=== PATIENT | female | born 1990 | race Two or more races ===

== ENCOUNTER 2016-08-18 19:14 | Inpatient (IN) | payer SELFPAY ==
[~2016-08-18] VITALS: Ht 165.1 cm; Wt 93.0 kg
[2016-08-18] MEDS ORDERED: DINOPROSTONE 10 MG SUPP.VAG VG ONE (19:45)
[2016-08-18] MEDS ORDERED: fentaNYL PF VIAL 100 MCG/2 ML VIAL IV PRN (19:45)
[2016-08-18] MEDS ORDERED: TERBUTALINE 1 MG/ML VIAL. SQ PRN (19:45)
[2016-08-18] MEDS ORDERED: OXYTOCIN 30 UNIT/500 ML PREMIX 500 ML IV PRN (19:45)
[2016-08-18] MEDS ORDERED: BUTORPHANOL 2 MG/ML VIAL. IV PRN (19:45)
[2016-08-18] MEDS ORDERED: 0.9 % SODIUM CHLORIDE 10 ML DISP.SYRIN. IV PRN (19:45)
[2016-08-18] MEDS ORDERED: LIDOCAINE 1% PF 30 ML VIAL. INJ PRN (19:45)
[2016-08-18] MEDS ORDERED: IBUPROFEN 600 MG TABLET. PO PRN (19:45)
[2016-08-18] MEDS: IV RINGERS,LACTATED 1000ML 1,000 ML IV SCH (20:01)
[2016-08-18 20:27] LABS: HEMATOCRIT 37.1 % (36.0-47.0); HEMOGLOBIN 12.4 g/dL (12.0-15.5); RED BLOOD COUNT 4.23 x10^6/uL (3.50-5.40); RED CELL DISTRIBUTION WIDTH 14.6 % (11.5-14.5); WHITE BLOOD COUNT 8.3 x10^3/uL (4.0-11.0)
[2016-08-18 20:52] VITALS: BP 120/55
[2016-08-19] MEDS: IV RINGERS,LACTATED 1000ML 1,000 ML IV SCH ×2 (02:31→12:16)
[2016-08-19] MEDS ORDERED: OXYTOCIN 30 UNIT/500 ML PREMIX 500 ML IV PRN ×2 (08:00→16:30)
--- NOTE | 2016-08-19 11:10 | PDOC1 ---
OB - History Hx of Present Care: Good Care Ultrasounds: Normal mid trimester US Obstetrical Complications: None Medical Complications: None Past Family/Social History * Past Medical, Surgical, Family and Obstetric Histories reviewed from chart. Rubella: Immune RPR/VDRL: Negative GBS Status: Negative HBsAG: Negative OB - Chief Complaint & HPI Date of Admission: Date of Admission: August 18, 2016 at 19:14 Chief Complaint/History : 4 Para: 3 EGA: 39 Reason for admission: induction of labor Indication for induction: maternal discomfort Admission Nurse Assessment Rev: Yes Problems: OB - Admission Exam Physical Exam Vitals: VS - Last 72 Hours, by Label Date Time Temp Pulse Resp B/P (MAP) Pulse Ox O2 Delivery O2 Flow Rate FiO2 08/18/16 20:52 98.5 68 20 120/55 (76) Room Air 98.5 HEENT: Normal Heart: Regular Rate Lungs: Clear Abdomen: Gravid Extremities: Clubbing Reflexes: Normal Cervical Dilatation: 2cm Effacement: 75% Station: -3 Membranes: Intact Heart Rate: Normal Accelerations: Accelerations Present Contractions on Admission: None Intensity: Mild Text A: 39wks IUP IOL maternal discomforts P: Admit for IOL cervidil, then pitocin in am. MATEO CASH Jr, MD August 19, 2016 11:10
[2016-08-19] MEDS ORDERED: ROPIVacaine 0.2% IN 0.9%NACL PF 40 MG/20 ML DISP.SYRIN. ONE ×2 (12:00→12:01)
[2016-08-19] MEDS ORDERED: L&D EPIDURAL CASSETTE 100 ML EP ONE (12:01)
[2016-08-19] MEDS ORDERED: ePHEDrine PF IN SALINE 50 MG/5 ML DISP.SYRIN IV PRN (12:15)
[2016-08-19] MEDS ORDERED: ONDANSETRON PF 4 MG/2 ML VIAL. IV PRN (12:15)
[2016-08-19] MEDS ORDERED: ROPIVacaine 0.2% PF 10 ML VIAL. EPI ONE (12:15)
[2016-08-19] MEDS ORDERED: L&D EPIDURAL CASSETTE 100 ML EP PRN (12:15)
[2016-08-19] MEDS ORDERED: NALOXONE 0.4 MG/ML VIAL. IV PRN (12:15)
[2016-08-19] MEDS ORDERED: fentaNYL PF VIAL 100 MCG/2 ML VIAL EPI ONE (12:15)
--- NOTE | 2016-08-19 16:26 | PDOC ---
VAGINAL DELIVERY DATE DATE: 08/19/16 TIME: 16:25 : 4 Para: 4 EGA: 39 VAGINAL DELIVERY: VTX VACCUM ASSISTED: No PLACENTA: Spontaneous 12/11 SEX: Female WEIGHT Weight [3030 gm ] Nuchal Cord: No Amniotic Fluid: Clear PAIN: Epidural EPISIOTOMY: No EXTENSION: No EBL 300 ml COMPLICATIONS none CONDITION pt. stable Signs of Intrauterine Infectio: None Shoulder Dystocia: No Problems: MATEO CASH Jr, MD August 19, 2016 16:26
[2016-08-19] MEDS ORDERED: diphenhydrAMINE HCL 25 MG CAPSULE PO PRN (16:30)
[2016-08-19] MEDS ORDERED: HYDROCORTISONE 1% TOPICAL OINTMENT 30GM TUBE. TP PRN (16:30)
[2016-08-19] MEDS ORDERED: ACETAMINOPHEN 325 MG TABLET. PO PRN (16:30)
[2016-08-19] MEDS ORDERED: PHENYLEPH/MINERAL OIL/PETROLAT RECTAL OINTMENT 28GM TUBE. RC PRN (16:30)
[2016-08-19] MEDS ORDERED: IBUPROFEN 800 MG TABLET. PO PRN (16:30)
[2016-08-19] MEDS ORDERED: SIMETHICONE 80 MG TAB.CHEW PO PRN (16:30)
[2016-08-19] MEDS ORDERED: oxyCODONE/APAP 5/325 1 TAB TABLET PO PRN (16:30)
[2016-08-19] MEDS ORDERED: MAGNESIUM HYDROXIDE 2,400 MG/30 ML ORAL.SUSP. PO PRN (16:30)
[2016-08-19] MEDS ORDERED: MMR per PROTOCOL. MC PRN (16:30)
[2016-08-19] MEDS ORDERED: 0.9 % SODIUM CHLORIDE 10 ML DISP.SYRIN. IV PRN (16:30)
[2016-08-19] MEDS ORDERED: BENZOCAINE 20% TOPICAL AEROSOL SPRAY 57GM CAN. TP PRN (16:30)
[2016-08-19] MEDS ORDERED: DOCUSATE SODIUM 100 MG CAPSULE. PO PRN (16:30)
[2016-08-19] MEDS ORDERED: ZOLPIDEM 5 MG TABLET. PO PRN (16:30)
[2016-08-19] MEDS ORDERED: MAG HYDROX/ALUMINUM HYD/SIMETH 30 ML ORAL.SUSP PO PRN (16:30)
[2016-08-19 19:30] VITALS: BP 108/57
[2016-08-19 22:41] VITALS: BP 107/61
[2016-08-20 02:38] VITALS: BP 108/64
[2016-08-20 04:29] LABS: BASO % 0 % (0-3); EOS % 0 % (0-3); HEMATOCRIT 36.2 % (36.0-47.0); HEMOGLOBIN 12.1 g/dL (12.0-15.5); LYMPH # 1.4 x10^3/uL (1.0-4.8); LYMPH % 17 % (24-48); MEAN CORPUSCULAR HEMOGLOBIN 30 pg (25-35); MEAN CORPUSCULAR HGB CONC 34 g/dL (31-37); MEAN CORPUSCULAR VOLUME 88 fL (79-100); MONO % 7 % (0-9); NEUT % 76 % (31-73); PLATELET COUNT 109 x10^3/uL (140-400); RED BLOOD COUNT 4.11 x10^6/uL (3.50-5.40); RED CELL DISTRIBUTION WIDTH 14.2 % (11.5-14.5); WHITE BLOOD COUNT 8.3 x10^3/uL (4.0-11.0)
[2016-08-20 06:00] VITALS: BP 107/66
[2016-08-20] MEDS ORDERED: FERROUS SULFATE 325 MG TABLET. PO SCH (08:00)
--- NOTE | 2016-08-20 08:52 | PDOC ---
OB Progress Note Date of Service 08/20/16 Time of Evaluation 0850 Notes PT. feeling well. Breat feeding. Lochia minimal. Pain controlled. Lab Laboratory Tests Test 08/18/16 20:05 08/20/16 04:00 White Blood Count 8.3 x10^3/uL (4.0-11.0) 8.3 x10^3/uL (4.0-11.0) Red Blood Count 4.23 x10^6/uL (3.50-5.40) 4.11 x10^6/uL (3.50-5.40) Hemoglobin 12.4 g/dL (12.0-15.5) 12.1 g/dL (12.0-15.5) Hematocrit 37.1 % (36.0-47.0) 36.2 % (36.0-47.0) Mean Corpuscular Volume 88 fL (79-100) 88 fL (79-100) Mean Corpuscular Hemoglobin 29 pg (25-35) 30 pg (25-35) Mean Corpuscular Hemoglobin Concent 34 g/dL (31-37) 34 g/dL (31-37) Red Cell Distribution Width 14.6 % (11.5-14.5) 14.2 % (11.5-14.5) Platelet Count 119 x10^3/uL (140-400) 109 x10^3/uL (140-400) Neutrophils (%) (Auto) 76 % (31-73) Lymphocytes (%) (Auto) 17 % (24-48) Monocytes (%) (Auto) 7 % (0-9) Eosinophils (%) (Auto) 0 % (0-3) Basophils (%) (Auto) 0 % (0-3) Neutrophils # (Auto) 6.3 x10^3uL (1.8-7.7) Lymphocytes # (Auto) 1.4 x10^3/uL (1.0-4.8) Monocytes # (Auto) 0.5 x10^3/uL (0.0-1.1) Eosinophils # (Auto) 0.0 x10^3/uL (0.0-0.7) Basophils # (Auto) 0.0 x10^3/uL (0.0-0.2) Laboratory Tests Test 08/20/16 04:00 White Blood Count 8.3 x10^3/uL (4.0-11.0) Red Blood Count 4.11 x10^6/uL (3.50-5.40) Hemoglobin 12.1 g/dL (12.0-15.5) Hematocrit 36.2 % (36.0-47.0) Mean Corpuscular Volume 88 fL (79-100) Mean Corpuscular Hemoglobin 30 pg (25-35) Mean Corpuscular Hemoglobin Concent 34 g/dL (31-37) Red Cell Distribution Width 14.2 % (11.5-14.5) Platelet Count 109 x10^3/uL (140-400) Neutrophils (%) (Auto) 76 % (31-73) Lymphocytes (%) (Auto) 17 % (24-48) Monocytes (%) (Auto) 7 % (0-9) Eosinophils (%) (Auto) 0 % (0-3) Basophils (%) (Auto) 0 % (0-3) Neutrophils # (Auto) 6.3 x10^3uL (1.8-7.7) Lymphocytes # (Auto) 1.4 x10^3/uL (1.0-4.8) Monocytes # (Auto) 0.5 x10^3/uL (0.0-1.1) Eosinophils # (Auto) 0.0 x10^3/uL (0.0-0.7) Basophils # (Auto) 0.0 x10^3/uL (0.0-0.2) Medications Current Medications Sodium Chloride (Normal Saline Flush) 3 ml QSHIFT PRN IV AFTER MEDS AND BLOOD DRAWS; Start 08/18/16 at 19:45 Ringer's Solution 1,000 ml @ 125 mls/hr Q8H IV Last administered on 08/19/16t 12:16; Start 08/18/16 at 19:31 Butorphanol Tartrate (Stadol) 2 mg PRN Q1HR PRN IV Severe labor pain; Start at 19:45 Fentanyl Citrate (Fentanyl 2ml Vial) 100 mcg PRN Q30MIN PRN IV Severe pain; Start 08/18/16 at 19:45 Terbutaline Sulfate (Brethine) 0.25 mg 1X PRN PRN SQ SEE COMMENTS; Start at 19:45; Stop 08/19/16 at 19:44; Status DC Lidocaine HCl 30 ml 1X PRN PRN INJ SEE COMMENTS; Start 08/18/16 at 19:45; Stop 08/20/16 at 19:44 Oxytocin/Sodium Chloride 500 ml @ 0 mls/hr CONT PRN IV SEE I/O RECORD Last administered on 08/19/16 07:59; Start 08/19/16 at 08:00 Oxytocin/Sodium Chloride 500 ml @ 0 mls/hr CONT PRN PRN IV Post delivery bleeding; Start 08/18/16 at 19:45 Ibuprofen (Motrin) 600 mg PRN Q6HRS PRN PO PAIN Last administered on 08/19/16 17:33; Start 08/18/16 at 19:45 Dinoprostone (Cervidil) 10 mg 1X ONCE VG Last administered on 08/18/16 20:01 ; Start 08/18/16 at 19:45; Stop 08/18/16 at 19:46; Status DC Ropivacaine/ Fentanyl/NS 100 ml @ As Directed STK-MED ONCE EP ; Start 08/19/16 at 12:01; Stop 08/19/16 at 12:02; Status DC Ropivacaine 40 mg STK-MED ONCE .ROUTE ; Start 08/19/16 at 12:01; Stop 08/19/16 at 12:02; Status DC Ephedrine Sulfate 10 mg PRN Q2MIN PRN IV IF SBP<90; Start 08/19/16 at 12:15 Naloxone HCl (Narcan) 0.04 mg PRN Q1MIN PRN IV SEE COMMENTS; Start 08/19/16 at 12:15 Fentanyl Citrate (Fentanyl 2ml Vial) 100 mcg 1X ONCE EPI ; Start 08/19/16 at 12 :15; Stop 08/19/16 at 12:16; Status DC Ropivacaine/ Fentanyl/NS 100 ml @ 14 mls/hr CONT PRN EP PAIN Last administered on 08/19/16 12:20; Start 08/19/16 at 12:15 Ondansetron HCl (Zofran) 4 mg PRN Q6HRS PRN IV NAUSEA/VOMITING; Start 08/19/16 at 12:15 Ropivacaine (Naropin 0.2%) 20 ml 1X ONCE EPI ; Start 08/19/16 at 12:15; Stop at 12:16; Status DC Sodium Chloride (Normal Saline Flush) 10 ml QSHIFT PRN IV AFTER MEDS AND BLOOD DRAWS; Start 08/19/16 at 16:30 Oxytocin/Sodium Chloride 500 ml @ 62.5 mls/hr CONT PRN IV SEE I/O RECORD; Start 08/19/16 at 16:30; Stop 08/20/16 at 00:29; Status DC Acetaminophen (Tylenol) 650 mg PRN Q6HRS PRN PO MILD PAIN / TEMP; Start at 16:30 Ibuprofen (Motrin) 800 mg PRN Q8HRS PRN PO INFLAMMATION/PAIN PREVENTION; Start 08/19/16 at 16:30 Docusate Sodium (Colace) 100 mg PRN BID PRN PO CONSTIPATION; Start 08/19/16 at 16:30 Magnesium Hydroxide (Milk Of Magnesia) 2,400 mg PRN DAILY PRN PO CONSTIPATION; Start 08/19/16 at 16:30 Al Hydroxide/Mg Hydroxide (Mylanta Plus Xs) 30 ml PRN Q4HRS PRN PO HEARTBURN / GAS; Start 08/19/16 at 16:30 Simethicone (Gas-X) 80 mg PRN AFTMEALHC PRN PO GAS / BLOATING; Start 08/19/16 at 16:30 Diphenhydramine HCl (Benadryl) 25 mg PRN Q6HRS PRN PO ITCHING; Start 08/19/16 at 16:30 Benzocaine (Americaine) 1 spray PRN QID PRN TP TOPICAL PAIN Last administered on 08/19/16t 17:33; Start 08/19/16 at 16:30 Phenyleph/Shark Oil/Min Oil/Petrol (Preparation H) 1 anju PRN QID PRN RC RECTAL PAIN; Start 08/19/16 at 16:30 Hydrocortisone (Cortaid) 1 naju PRN QID PRN TP PERINEAL PAIN; Start 08/19/16 at 16:30 Ferrous Sulfate (Feosol) 325 mg BIDWMEALS PO ; Start 08/20/16 at 08:00 Zolpidem Tartrate (Ambien) 5 mg PRN QHS PRN PO INSOMNIA, MAY REPEAT X1; Start 08/19/16 at 16:30 Info (Do NOT chart on this placeholder) 1 ea 1X PRN PRN MC SEE COMMENTS; Start 08/19/16 at 16:30 Info (Do NOT chart on this placeholder) 1 ea 1X PRN PRN MC SEE COMMENTS; Start 08/19/16 at 16:30 Oxycodone/ Acetaminophen (Percocet 5/325) 2 tab PRN Q4HRS PRN PO MODERATE PAIN , SEVERE PAIN; Start 08/19/16 at 16:30 Ropivacaine 40 mg STK-MED ONCE .ROUTE ; Start 08/19/16 at 12:00; Stop 08/20/16 at 08:01; Status DC Exam AbD: soft, non tender, fundus firm Assessment PPD#1 s/p Plan of Care: Continue current Tx, Mgmt MATEO CASH Jr, MD August 20, 2016 08:52
[2016-08-20 10:42] VITALS: BP 115/64
[2016-08-20 14:27] LABS: RPR REFLEX Non Reactive (Non Reactive)
[2016-08-20 15:15] VITALS: BP 109/69
[2016-08-20 18:33] VITALS: BP 104/61
[2016-08-20 22:10] VITALS: BP 114/62
[2016-08-21 05:42] VITALS: BP 116/69
--- NOTE | 2016-08-21 08:52 | PDOC ---
OB Progress Note Date of Service 08/21/16 Time of Evaluation 0850 Notes Pt. feeling well. No complaints. Lab Laboratory Tests Test 08/20/16 04:00 White Blood Count 8.3 x10^3/uL (4.0-11.0) Red Blood Count 4.11 x10^6/uL (3.50-5.40) Hemoglobin 12.1 g/dL (12.0-15.5) Hematocrit 36.2 % (36.0-47.0) Mean Corpuscular Volume 88 fL (79-100) Mean Corpuscular Hemoglobin 30 pg (25-35) Mean Corpuscular Hemoglobin Concent 34 g/dL (31-37) Red Cell Distribution Width 14.2 % (11.5-14.5) Platelet Count 109 x10^3/uL (140-400) Neutrophils (%) (Auto) 76 % (31-73) Lymphocytes (%) (Auto) 17 % (24-48) Monocytes (%) (Auto) 7 % (0-9) Eosinophils (%) (Auto) 0 % (0-3) Basophils (%) (Auto) 0 % (0-3) Neutrophils # (Auto) 6.3 x10^3uL (1.8-7.7) Lymphocytes # (Auto) 1.4 x10^3/uL (1.0-4.8) Monocytes # (Auto) 0.5 x10^3/uL (0.0-1.1) Eosinophils # (Auto) 0.0 x10^3/uL (0.0-0.7) Basophils # (Auto) 0.0 x10^3/uL (0.0-0.2) Medications Current Medications Sodium Chloride (Normal Saline Flush) 3 ml QSHIFT PRN IV AFTER MEDS AND BLOOD DRAWS; Start 08/18/16 at 19:45 Ringer's Solution 1,000 ml @ 125 mls/hr Q8H IV Last administered on 08/19/16t 12:16; Start 08/18/16 at 19:31 Butorphanol Tartrate (Stadol) 2 mg PRN Q1HR PRN IV Severe labor pain; Start at 19:45 Fentanyl Citrate (Fentanyl 2ml Vial) 100 mcg PRN Q30MIN PRN IV Severe pain; Start 08/18/16 at 19:45 Terbutaline Sulfate (Brethine) 0.25 mg 1X PRN PRN SQ SEE COMMENTS; Start at 19:45; Stop 08/19/16 at 19:44; Status DC Lidocaine HCl 30 ml 1X PRN PRN INJ SEE COMMENTS; Start 08/18/16 at 19:45; Stop 08/20/16 at 19:44; Status DC Oxytocin/Sodium Chloride 500 ml @ 0 mls/hr CONT PRN IV SEE I/O RECORD Last administered on 08/19/16 07:59; Start 08/19/16 at 08:00 Oxytocin/Sodium Chloride 500 ml @ 0 mls/hr CONT PRN PRN IV Post delivery bleeding; Start 08/18/16 at 19:45 Ibuprofen (Motrin) 600 mg PRN Q6HRS PRN PO PAIN Last administered on 08/19/16 17:33; Start 08/18/16 at 19:45 Dinoprostone (Cervidil) 10 mg 1X ONCE VG Last administered on 08/18/16 20:01 ; Start 08/18/16 at 19:45; Stop 08/18/16 at 19:46; Status DC Ropivacaine/ Fentanyl/NS 100 ml @ As Directed STK-MED ONCE EP ; Start 08/19/16 at 12:01; Stop 08/19/16 at 12:02; Status DC Ropivacaine 40 mg STK-MED ONCE .ROUTE ; Start 08/19/16 at 12:01; Stop 08/19/16 at 12:02; Status DC Ephedrine Sulfate 10 mg PRN Q2MIN PRN IV IF SBP<90; Start 08/19/16 at 12:15 Naloxone HCl (Narcan) 0.04 mg PRN Q1MIN PRN IV SEE COMMENTS; Start 08/19/16 at 12:15 Fentanyl Citrate (Fentanyl 2ml Vial) 100 mcg 1X ONCE EPI ; Start 08/19/16 at 12 :15; Stop 08/19/16 at 12:16; Status DC Ropivacaine/ Fentanyl/NS 100 ml @ 14 mls/hr CONT PRN EP PAIN Last administered on 08/19/16 12:20; Start 08/19/16 at 12:15 Ondansetron HCl (Zofran) 4 mg PRN Q6HRS PRN IV NAUSEA/VOMITING; Start 08/19/16 at 12:15 Ropivacaine (Naropin 0.2%) 20 ml 1X ONCE EPI ; Start 08/19/16 at 12:15; Stop at 12:16; Status DC Sodium Chloride (Normal Saline Flush) 10 ml QSHIFT PRN IV AFTER MEDS AND BLOOD DRAWS; Start 08/19/16 at 16:30 Oxytocin/Sodium Chloride 500 ml @ 62.5 mls/hr CONT PRN IV SEE I/O RECORD; Start 08/19/16 at 16:30; Stop 08/20/16 at 00:29; Status DC Acetaminophen (Tylenol) 650 mg PRN Q6HRS PRN PO MILD PAIN / TEMP; Start at 16:30 Ibuprofen (Motrin) 800 mg PRN Q8HRS PRN PO INFLAMMATION/PAIN PREVENTION Last administered on 08/20/16 08:59; Start 08/19/16 at 16:30 Docusate Sodium (Colace) 100 mg PRN BID PRN PO CONSTIPATION Last administered on 08/20/16 08:58; Start 08/19/16 at 16:30 Magnesium Hydroxide (Milk Of Magnesia) 2,400 mg PRN DAILY PRN PO CONSTIPATION; Start 08/19/16 at 16:30 Al Hydroxide/Mg Hydroxide (Mylanta Plus Xs) 30 ml PRN Q4HRS PRN PO HEARTBURN / GAS; Start 08/19/16 at 16:30 Simethicone (Gas-X) 80 mg PRN AFTMEALHC PRN PO GAS / BLOATING; Start 08/19/16 at 16:30 Diphenhydramine HCl (Benadryl) 25 mg PRN Q6HRS PRN PO ITCHING; Start 08/19/16 at 16:30 Benzocaine (Americaine) 1 spray PRN QID PRN TP TOPICAL PAIN Last administered on 08/19/16 17:33; Start 08/19/16 at 16:30 Phenyleph/Shark Oil/Min Oil/Petrol (Preparation H) 1 anju PRN QID PRN RC RECTAL PAIN; Start 08/19/16 at 16:30 Hydrocortisone (Cortaid) 1 anju PRN QID PRN TP PERINEAL PAIN; Start 08/19/16 at 16:30 Ferrous Sulfate (Feosol) 325 mg BIDWMEALS PO ; Start 08/20/16 at 08:00; Stop at 15:44; Status DC Zolpidem Tartrate (Ambien) 5 mg PRN QHS PRN PO INSOMNIA, MAY REPEAT X1; Start 08/19/16 at 16:30 Info (Do NOT chart on this placeholder) 1 ea 1X PRN PRN MC SEE COMMENTS; Start 08/19/16 at 16:30 Info (Do NOT chart on this placeholder) 1 ea 1X PRN PRN MC SEE COMMENTS; Start 08/19/16 at 16:30 Oxycodone/ Acetaminophen (Percocet 5/325) 2 tab PRN Q4HRS PRN PO MODERATE PAIN , SEVERE PAIN; Start 08/19/16 at 16:30 Ropivacaine 40 mg STK-MED ONCE .ROUTE ; Start 08/19/16 at 12:00; Stop 08/20/16 at 08:01; Status DC Exam Abd: soft,non tender, fundus firm Assessment PPD#2 s/p Plan of Care: See new orders (D/c home.) MATEO CASH Jr, MD August 21, 2016 08:52
[2016-08-21] MEDS ORDERED: IBUP-1060 PO (08:53)
--- NOTE | 2016-08-21 08:53 | DISCH ---
DISCHARGE INSTRUCTIONS Condition on Discharge Condition on Discharge: Stable Activity After Discharge Activity Instructions for Disc: Activity as tolerated Lifting Instructions after Dis: No heavy lifting Driving Instructions after Dis: Do not drive today Diet after Discharge Diet after Discharge: Regular Contacting the DRChristie after DC Call your doctor for: Concerns you may have Follow-Up Follow up with: Louann in 6 weeks. MATEO CASH Jr, MD August 21, 2016 08:53
[2016-08-21] MEDS ORDERED: MEASLES, MUMPS & RUBELLA VACC 0.5 ML VIAL. VAX SQ ONE (12:45)
== END 2016-08-21 12:57 | disposition home or self-care (01) | DRG 775 ==
LOC: OBSVTOIN 19:14 → 3 SO LND 19:14 → 3 NORTH 08-19 18:34
PROVIDERS: ADMIT Obstetrics & Gynecology; ATTEND Obstetrics & Gynecology
PROC: 10E0XZZ Delivery of Products of Conception, External Approach (ICD-10-PCS; principal; 2016-08-21)
PROC: 3E0P7GC Introduction of Other Therapeutic Substance into Female Reproductive, Via Natural or Artificial Opening (ICD-10-PCS; 2016-08-21)
PROC: 3E033VJ Introduction of Other Hormone into Peripheral Vein, Percutaneous Approach (ICD-10-PCS; 2016-08-21)
DX: O80 Encounter for full-term uncomplicated delivery (principal); Z37.0 Single live birth; Z3A.39 39 weeks gestation of pregnancy
CPT/HCPCS: 36415; 85027; 86593; 86762; 86850; 86900; 86901; 90707; G0378; J2590; J2795; J7120

== ENCOUNTER 2018-09-13 21:39 | Emergency (ER) | payer SELFPAY ==
[~2018-09-13] VITALS: Ht 165.1 cm; Wt 86.2 kg
[~2018-09-13 21:39] MED LIST: IBUP-1060 PO
[2018-09-13 21:45] VITALS: BP 133/84
--- NOTE | 2018-09-13 21:53 | PHYS DOC ---
Adult General Chief Complaint Chief Complaint: HEADACHE HPI HPI Patient is a 27 year old f p/w headache top of head throbbing constant has a history of frequent migraines the new problem today is the body feels like it is trembling couldnt feel both hands on the way at home right before leaving for the er. no relief with home medications no fever one episode of vomitng Review of Systems Review of Systems Constitutional: Denies fever or chills [] Eyes: Denies change in visual acuity, redness, or eye pain [] HENT: Denies nasal congestion or sore throat [] Respiratory: Denies cough or shortness of breath [] Cardiovascular: No additional information not addressed in HPI [] GI: Denies abdominal pain, nausea, vomiting, bloody stools or diarrhea [] : Denies dysuria or hematuria [] Musculoskeletal: Denies back pain or joint pain [] Integument: Denies rash or skin lesions [] Neurologic: Denies headache, focal weakness or sensory changes [] Endocrine: Denies polyuria or polydipsia [] All other systems were reviewed and found to be within normal limits, except as documented in this note. Current Medications Current Medications Current Medications Medications (Trade) Dose Ordered Sig/Colleen Start Time Stop Time Status Last Admin Dose Admin Diphenhydramine HCl (Benadryl) 25 mg 1X ONCE 09/13/18 22:00 09/13/18 22:05 DC 09/13/18 22:10 25 MG Ketorolac Tromethamine (Toradol 30mg Vial) 30 mg 1X ONCE 09/13/18 22:30 09/13/18 22:31 DC 09/13/18 22:32 30 MG Prochlorperazine Edisylate (Compazine) 10 mg 1X ONCE 09/13/18 22:00 09/13/18 22:05 DC 09/13/18 22:10 10 MG Allergies Allergies Allergies Coded Allergies Type Severity Reaction Last Updated Verified No Known Drug Allergies 08/18/16 No Physical Exam Physical Exam Constitutional: Well developed, well nourished, no acute distress, non-toxic appearance. [] HENT: Normocephalic, atraumatic, bilateral external ears normal, oropharynx moist, no oral exudates, nose normal. [] Eyes: PERRLA, EOMI, conjunctiva normal, no discharge. [] Neck: Normal range of motion, no tenderness, supple, no stridor. [] Cardiovascular:Heart rate regular rhythm, no murmur [] Lungs & Thorax: Bilateral breath sounds clear to auscultation [] Abdomen: Bowel sounds normal, soft, no tenderness, no masses, no pulsatile cordell s. [] Skin: Warm, dry, no erythema, no rash. [] Back: No tenderness, no CVA tenderness. [] Extremities: No tenderness, no cyanosis, no clubbing, ROM intact, no edema. [] Neurologic: Alert and oriented X 3, normal motor function, normal sensory function, no focal deficits noted. [] Psychologic:pt was hyperventilating on arrival Current Patient Data Vital Signs Vital Signs Date Time Temp Pulse Resp B/P (MAP) Pulse Ox O2 Delivery O2 Flow Rate FiO2 09/13/18 21:45 98.9 92 29 133/84 (100) 100 Room Air 98.9 Lab Values Laboratory Tests Test 09/13/18 22:04 09/13/18 22:08 09/13/18 22:43 Urine Collection Type Unknown Urine Color Yellow Urine Clarity Turbid Urine pH 8.5 Urine Specific [place] 1.025 Urine Protein 30 mg/dL (NEG-TRACE) Urine Glucose (UA) Negative mg/dL (NEG) Urine Ketones (Stick) Negative mg/dL (NEG) Urine Blood Negative (NEG) Urine Nitrite Negative (NEG) Urine Bilirubin Negative (NEG) Urine Urobilinogen Dipstick 0.2 mg/dL (0.2 mg/dL) Urine Leukocyte Esterase Small (NEG) Urine RBC 0 /HPF (0-2) Urine WBC 1-4 /HPF (0-4) Urine Squamous Epithelial Cells Few /LPF Urine Amorphous Sediment Present /HPF Urine Bacteria 0 /HPF (0-FEW) Urine Mucus Slight /LPF POC Urine HCG, Qualitative Hcg negative (Negative) Glucose (Fingerstick) 127 mg/dL (70-99) H EKG EKG [] Radiology/Procedures Radiology/Procedures [] Course & Med Decision Making Course & Med Decision Making Pertinent Labs and Imaging studies reviewed. (See chart for details) []migraine usual symptoms aw hyperventilation on arrival likely the reason for the b/l hand numbness. normal neuro exam. pt felt much better after meds likely migraine reassured Lia Disclaimer Lia Disclaimer This electronic medical record was generated, in whole or in part, using a voice recognition dictation system. Departure Departure Impression: Primary Impression: Migraine Disposition: 01 HOME, SELF-CARE Condition: STABLE Referrals: UNKNOWN PCP NAME (PCP) ROSARIO WINN MD Sep 13, 2018 21:53
[2018-09-13] MEDS ORDERED: PROCHLORPERAZINE 10 MG/2 ML VIAL. IM ONE (22:00)
[2018-09-13] MEDS ORDERED: diphenhydrAMINE 50 MG/ML VIAL IM ONE (22:00)
[2018-09-13 22:12] LABS: BILIRUBIN,URINE NEGATIVE (NEG); CLARITY,URINE TURBID; COLOR,URINE YELLOW; NITRITE,URINE NEGATIVE (NEG); PH,URINE 8.5; PROTEIN,URINE 30 mg/dL (NEG-TRACE); UROBILINOGEN,URINE 0.2 mg/dL (0.2 mg/dL)
[2018-09-13 22:20] LABS: RBC,URINE 0 /HPF (0-2); SQUAMOUS EPITHELIAL CELL,UR FEW /LPF
[2018-09-13 22:21] LABS: AMORPHOUS SEDIMENT,UR PRESENT /HPF; BACTERIA,URINE 0 /HPF (0-FEW)
[2018-09-13] MEDS ORDERED: KETOROLAC 30 MG/ML VIAL. IM ONE (22:30)
== END 2018-09-13 22:59 | disposition home or self-care (01) ==
LOC: ER 21:39
DX: G43.909 Migraine, unspecified, not intractable, without status migrainosus (principal); R06.4 Hyperventilation
CPT/HCPCS: 81001; 81025; 82962; 87086; 96372; 99284; J0780; J1200; J1885

== ENCOUNTER 2020-12-19 22:00 | Emergency (ER) | payer SELFPAY | END 2020-12-20 | disposition left against medical advice (07) | LOC: ER 22:00 | DX: R51.9 Headache, unspecified (principal); Z53.21 Procedure and treatment not carried out due to patient leaving prior to being seen by health care provider ==